=== PATIENT | female | born 1970 | race Hispanic/Latino ===

== ENCOUNTER 2019-12-29 14:47 | Emergency (ER) | payer BC, MEDICAID, OTHER ==
[2019-12-29] MEDS ORDERED: ACETAMINOPHEN 325 MG TAB ONE (15:13)
== END 2019-12-29 16:58 | disposition home or self-care (01) ==
LOC: EDH 14:47
DX: S39.012A Strain of muscle, fascia and tendon of lower back, initial encounter (principal); I10 Essential (primary) hypertension; Z90.49 Acquired absence of other specified parts of digestive tract; Z90.710 Acquired absence of both cervix and uterus; Z98.890 Other specified postprocedural states; V49.49XA Driver injured in collision with other motor vehicles in traffic accident, initial encounter; Y93.89 Activity, other specified; Y92.488 Other paved roadways as the place of occurrence of the external cause; Y99.8 Other external cause status
CPT/HCPCS: 72100

== ENCOUNTER 2021-06-12 23:03 | Emergency (ER) | payer BC ==
[~2021-06-12] VITALS: Ht 152.4 cm; Wt 99.8 kg
[2021-06-12 23:40] LABS: BASOPHILS % (AUTO) 0.4 % (0.0-5.0); EOSINOPHILS % (AUTO) 2.8 % (0.0-8.0); HEMATOCRIT 39.1 % (36-48); LYMPHOCYTES % (AUTO) 34.3 % (21.0-51.0); MEAN CORPUSCULAR HEMOGLOBIN 29.3 pg (27.0-33.0); MEAN CORPUSCULAR HGB CONC 32.5 g/dL (32.0-36.0); MEAN CORPUSCULAR VOLUME 90.3 fL (79-99); MONOCYTES % (AUTO) 7.3 % (3.0-13.0); NEUTROPHILS % (AUTO) 54.7 % (40.0-77.0); PLATELET COUNT (AUTO) 465 K/uL (130-400); RED BLOOD CELL COUNT(AUTO) 4.33 MIL/uL (4.00-5.50); RED CELL DISTRIBUTION WIDTH 12.9 % (11.0-15.5); WHITE BLOOD COUNT (AUTO) 8.5 K/uL (4.8-10.8)
[2021-06-12 23:52] LABS: POTASSIUM 3.6 mmol/L (3.5-5.1)
[2021-06-12 23:56] LABS: ALBUMIN 3.5 g/dL (3.5-5.0); BILIRUBIN,TOTAL 0.3 mg/dL (0.2-1.0); TOTAL PROTEIN, SERUM 8.1 g/dL (6.0-8.3)
[2021-06-13 00:03] LABS: B-TYPE NATRIURETIC PEPTIDE 18 pg/mL (0-100)
[2021-06-13] MEDS ORDERED: KETOROLAC 30MG VIAL (30MG/ML) IV ONE (00:30)
[2021-06-13] MEDS ORDERED: LIDOP TP (00:31)
[2021-06-13] MEDS ORDERED: CYCL-309 PO (00:31)
[2021-06-13] MEDS ORDERED: MELO7.5T12 PO (00:31)
[2021-06-13 00:55] VITALS: BP 146/82
== END 2021-06-13 01:19 | disposition home or self-care (01) ==
LOC: EDH 23:03
DX: R07.89 Other chest pain (principal); M62.830 Muscle spasm of back; R06.02 Shortness of breath; E78.00 Pure hypercholesterolemia, unspecified; I10 Essential (primary) hypertension; Z79.1 Long term (current) use of non-steroidal anti-inflammatories (NSAID)
CPT/HCPCS: 36415; 71045; 80053; 82550; 83690; 83874; 83880; 84484; 85025; 93005; 96372; 99284; J1885

== ENCOUNTER 2021-12-23 15:32 | Emergency (ER) | payer BC ==
[~2021-12-23] VITALS: Ht 152.4 cm; Wt 97.5 kg
[~2021-12-23 15:32] MED LIST: CYCL-309 PO; LIDOP TP; MELO7.5T12 PO
[2021-12-23] MEDS ORDERED: ACETAMINOPHEN 500 MG TABLET ONE (16:03)
[2021-12-23 16:09] LABS: APPEARANCE,URINE Clear (CLEAR); BILIRUBIN,URINE Negative (NEGATIVE); COLOR,URINE Yellow (YELLOW); GLUCOSE, URINE (UA) Negative (NEGATIVE); KETONES,URINE Negative (NEGATIVE); LEUKOCYTE ESTERASE ,URINE Negative (NEGATIVE); NITRATE,URINE Negative (NEGATIVE); OCCULT BLOOD,URINE Negative (NEGATIVE); PROTEIN,URINE Negative (NEGATIVE)
[2021-12-23] MEDS ORDERED: ACETAMINOPHEN 500 MG TABLET PO ONE (16:30)
[2021-12-23] MEDS ORDERED: CEFTRIAXONE 1G VIAL IM ONE (17:30)
[2021-12-23] MEDS ORDERED: AMOX-426 PO (17:34)
[2021-12-23 18:01] VITALS: BP 145/84
== END 2021-12-23 18:02 | disposition home or self-care (01) ==
LOC: EDH 15:32
DX: J02.9 Acute pharyngitis, unspecified (principal); R50.9 Fever, unspecified; Z20.822 Contact with and (suspected) exposure to COVID-19; I10 Essential (primary) hypertension; Z98.890 Other specified postprocedural states; Z79.899 Other long term (current) drug therapy
CPT/HCPCS: 81003; 87635; 87804 ×2; 87880; 96372; 99284; C9803; J0696

== ENCOUNTER 2021-12-25 17:18 | Emergency (ER) | payer BC ==
[~2021-12-25] VITALS: Ht 152.4 cm; Wt 90.7 kg
[~2021-12-25 17:18] MED LIST changes: +AMOX-426 PO
[2021-12-25 17:20] VITALS: BP 155/85
== END 2021-12-25 18:22 | disposition left against medical advice (07) ==
LOC: EDH 17:18
DX: J02.9 Acute pharyngitis, unspecified (principal); R50.9 Fever, unspecified; Z53.21 Procedure and treatment not carried out due to patient leaving prior to being seen by health care provider

== ENCOUNTER 2022-01-11 14:06 | Emergency (ER) | payer BC ==
[~2022-01-11] VITALS: Ht 152.4 cm; Wt 95.3 kg
[2022-01-11 14:07] VITALS: BP 150/85
[2022-01-11] MEDS ORDERED: ACETAMINOPHEN 500 MG TABLET PO ONE (14:30)
[2022-01-11] MEDS ORDERED: 0.9%NACL 1000ML 1,000 ML IV SCH (14:30)
[2022-01-11] MEDS ORDERED: KETOROLAC 30MG VIAL (30MG/ML) IVP ONE (14:30)
[2022-01-11 14:49] LABS: BASOPHILS % (AUTO) 0.3 % (0.0-5.0); EOSINOPHILS % (AUTO) 0.1 % (0.0-8.0); HEMATOCRIT 39.4 % (36-48); LYMPHOCYTES % (AUTO) 7.3 % (21.0-51.0); MEAN CORPUSCULAR HGB CONC 32.5 g/dL (32.0-36.0); MEAN CORPUSCULAR VOLUME 89.1 fL (79-99); MONOCYTES % (AUTO) 5.2 % (3.0-13.0); NEUTROPHILS % (AUTO) 86.3 % (40.0-77.0); PLATELET COUNT (AUTO) 489 K/uL (130-400); RED BLOOD CELL COUNT(AUTO) 4.42 MIL/uL (4.00-5.50); RED CELL DISTRIBUTION WIDTH 13.8 % (11.0-15.5)
[2022-01-11] MEDS ORDERED: ONDA4TAB10 PO (15:18)
[2022-01-11] MEDS ORDERED: LEVO500T90 PO (15:18)
[2022-01-11] MEDS ORDERED: METR375C2 PO (15:18)
[2022-01-11] MEDS ORDERED: DICY20TA2 PO (15:18)
[2022-01-11 15:20] LABS: APPEARANCE,URINE Cloudy (CLEAR); BILIRUBIN,URINE Small (NEGATIVE); COLOR,URINE Dark Yellow (YELLOW); GLUCOSE, URINE (UA) Negative (NEGATIVE); KETONES,URINE Trace mg/dL (NEGATIVE); LEUKOCYTE ESTERASE ,URINE Trace (NEGATIVE); NITRATE,URINE Negative (NEGATIVE); OCCULT BLOOD,URINE Nonhemolyzed Trace (NEGATIVE); PH,URINE 5.5 (5.0-8.0); PROTEIN,URINE POS 2+ mg/dL (NEGATIVE)
[2022-01-11 15:20] LABS: ALBUMIN 3.4 g/dL (3.5-5.0); BILIRUBIN,TOTAL 0.5 mg/dL (0.2-1.0); CREATININE 0.9 mg/dL (0.5-1.5); POTASSIUM 3.3 mmol/L (3.5-5.1); TOTAL PROTEIN, SERUM 8.8 g/dL (6.0-8.3)
[2022-01-11] MEDS ORDERED: METRONIDAZOLE 500 MG TABLET PO SCH (15:30)
[2022-01-11] MEDS ORDERED: LEVOFLOXACIN 500 MG TABLET PO SCH (15:30)
[2022-01-11 15:50] LABS: BACTERIA,URINE Few /HPF (None Seen); RBC,URINE 0-1 /HPF (0-1); SQUAMOUS EPITHELIAL CELL,UR Few /HPF (0-2)
[2022-01-11 15:51] LABS: MUCUS,URINE Rare LPF (None Seen)
== END 2022-01-11 15:39 | disposition home or self-care (01) ==
LOC: EDH 14:06
DX: K52.9 Noninfective gastroenteritis and colitis, unspecified (principal); K57.30 Diverticulosis of large intestine without perforation or abscess without bleeding; E86.0 Dehydration; R50.9 Fever, unspecified; E66.01 Morbid (severe) obesity due to excess calories; Z68.41 Body mass index [BMI] 40.0-44.9, adult; Z20.822 Contact with and (suspected) exposure to COVID-19; I10 Essential (primary) hypertension; Z90.49 Acquired absence of other specified parts of digestive tract; Z98.890 Other specified postprocedural states; Z79.899 Other long term (current) drug therapy; Z87.442 Personal history of urinary calculi
CPT/HCPCS: 36415; 74176; 80053; 81001; 82150; 84484; 85025; 87635; 96374; 99284; C9803; J1885; J7030

== ENCOUNTER 2022-05-10 15:34 | Emergency (ER) | payer BC ==
[~2022-05-10] VITALS: Ht 152.4 cm; Wt 99.8 kg
[~2022-05-10 15:34] MED LIST changes: +DICY20TA2 PO; +LEVO-70 PO; +METR375C2 PO; +ONDA4TAB10 PO
[2022-05-10] MEDS ORDERED: ONDANSETRON 4MG INJ IVP ONE (16:00)
[2022-05-10] MEDS ORDERED: MORPHINE 4 MG SYG IVP ONE (16:30)
[2022-05-10 17:30] LABS: BASOPHILS % (AUTO) 0.3 % (0.0-5.0); EOSINOPHILS % (AUTO) 1.4 % (0.0-8.0); HEMATOCRIT 41.8 % (36-48); LYMPHOCYTES % (AUTO) 22.3 % (21.0-51.0); MEAN CORPUSCULAR HEMOGLOBIN 28.5 pg (27.0-33.0); MEAN CORPUSCULAR HGB CONC 32.1 g/dL (32.0-36.0); MEAN CORPUSCULAR VOLUME 88.7 fL (79-99); MONOCYTES % (AUTO) 6.4 % (3.0-13.0); NEUTROPHILS % (AUTO) 69.3 % (40.0-77.0); PLATELET COUNT (AUTO) 431 K/uL (130-400); RED BLOOD CELL COUNT(AUTO) 4.71 MIL/uL (4.00-5.50); RED CELL DISTRIBUTION WIDTH 13.3 % (11.0-15.5); WHITE BLOOD COUNT (AUTO) 11.8 K/uL (4.8-10.8)
[2022-05-10 17:50] LABS: ALBUMIN 3.7 g/dL (3.5-5.0); CREATININE 0.7 mg/dL (0.5-1.5); POTASSIUM 4.2 mmol/L (3.5-5.1); TOTAL PROTEIN, SERUM 8.7 g/dL (6.0-8.3)
[2022-05-10] MEDS ORDERED: IOHEXOL 350 MG/ML 100ML INFUS..BTL IV ONE (18:17)
[2022-05-10] MEDS ORDERED: IBUP-2077 PO (19:09)
[2022-05-10] MEDS ORDERED: CYCL-309 PO (19:09)
[2022-05-10 19:15] VITALS: BP 133/76
[2022-05-10] MEDS ORDERED: ORPHENADRINE CITRATE 30 MG/ML ML IM ONE (19:30)
[2022-05-10] MEDS ORDERED: IBUPROFEN 800 MG TAB PO ONE (19:30)
== END 2022-05-10 19:46 | disposition home or self-care (01) ==
LOC: EDH 15:34
DX: S39.012A Strain of muscle, fascia and tendon of lower back, initial encounter (principal); S30.1XXA Contusion of abdominal wall, initial encounter; I10 Essential (primary) hypertension; E66.9 Obesity, unspecified; Z68.41 Body mass index [BMI] 40.0-44.9, adult; Z87.442 Personal history of urinary calculi; Z90.49 Acquired absence of other specified parts of digestive tract; Z98.890 Other specified postprocedural states; Z79.899 Other long term (current) drug therapy; W10.8XXA Fall (on) (from) other stairs and steps, initial encounter; Y93.89 Activity, other specified; Y92.89 Other specified places as the place of occurrence of the external cause; Y99.8 Other external cause status
CPT/HCPCS: 74177; 99284; 96374; 96375; 80053; 85025; 36415; 73502; 72100; 96372; J2405; J2270; J2360; Q9967

== ENCOUNTER 2023-07-07 00:22 | Emergency (ER) | payer BC ==
[~2023-07-07] VITALS: Ht 152.4 cm; Wt 104.8 kg
[~2023-07-07 00:22] MED LIST changes: +ACET325T51 PO; +AEC81 PO; +ALLO100T PO; -AMOX-426 PO; -CYCL-309 PO; +DICY-20 PO; -DICY20TA2 PO; +FLUO20CA30 PO; +HYDR500C2 PO; +IBUP-2077 PO; -LIDOP TP; +LOSA25TA41 PO; -MELO7.5T12 PO; +METO-409 PO; +METR-172 PO; -METR375C2 PO; -ONDA4TAB10 PO; +ONDA8TAB12 PO; +SOLI5TAB6 PO; +VITA1CAP PO
[2023-07-07 00:24] VITALS: BP 147/86; PULSE 67; RESP 16
[2023-07-07] MEDS ORDERED: KETOROLAC 30MG VIAL (30MG/ML) IVP ONE (01:00)
[2023-07-07] MEDS ORDERED: TRAMADOL HCL 50 MG TABLET PO PRN (01:00)
[2023-07-07] MEDS ORDERED: IBUP-1493 PO (01:47)
[2023-07-07] MEDS ORDERED: CYCL-309 PO (01:47)
[2023-07-08] MEDS ORDERED: LOSA1TAB37 PO (00:28)
== END 2023-07-07 02:25 | disposition home or self-care (01) ==
LOC: EDH 00:22
DX: M25.512 Pain in left shoulder (principal); I10 Essential (primary) hypertension; M19.90 Unspecified osteoarthritis, unspecified site; Z79.82 Long term (current) use of aspirin
CPT/HCPCS: 99284; 99285; 82550; 83735; 84484; 80053; 83880; 85025; 85378; 36415; 71045 ×2; 73030 ×2; 72050; 72125; 71275; 96374 ×2; 96375; 93005; J3475; J2270; J1885; J1940; Q9967

== ENCOUNTER 2023-07-07 19:29 | Emergency (ER) | payer BC ==
[~2023-07-07] VITALS: Ht 152.4 cm; Wt 99.8 kg
[~2023-07-07 19:29] MED LIST changes: +CYCL-309 PO; +IBUP-1493 PO
[2023-07-07] MEDS ORDERED: GABAPENTIN 300 MG CAPSULE PO SCH (20:00)
[2023-07-07 20:07] LABS: BASOPHILS # (AUTO) 0.04 K/uL (0.00-0.20); BASOPHILS % (AUTO) 0.3 % (0.0-5.0); EOSINOPHILS # (AUTO) 0.29 K/uL (0.00-0.70); EOSINOPHILS % (AUTO) 2.4 % (0.0-8.0); HEMATOCRIT 39.5 % (36-48); IMMATURE GRANULOCYTE ABSOLUTE 0.05 K/uL (0-1); LYMPHOCYTES # (AUTO) 2.3 K/uL (1.0-4.8); LYMPHOCYTES % (AUTO) 19.1 % (21.0-51.0); MEAN CORPUSCULAR HEMOGLOBIN 28.7 pg (27.0-33.0); MEAN CORPUSCULAR HGB CONC 31.6 g/dL (32.0-36.0); MEAN CORPUSCULAR VOLUME 90.6 fL (79-99); MONOCYTES % (AUTO) 7.9 % (3.0-13.0); NEUTROPHILS # (AUTO) 8.4 K/uL (1.8-7.7); NEUTROPHILS % (AUTO) 69.9 % (40.0-77.0); RED BLOOD CELL COUNT(AUTO) 4.36 MIL/uL (4.00-5.50); RED CELL DISTRIBUTION WIDTH 13.3 % (11.0-15.5); WHITE BLOOD COUNT (AUTO) 12.1 K/uL (4.8-10.8)
[2023-07-07 20:17] LABS: CREATININE 0.7 mg/dL (0.5-1.5); PLATELET COUNT (AUTO) 1063 K/uL (130-400); POTASSIUM 3.8 mmol/L (3.5-5.1)
[2023-07-07 20:21] LABS: ALBUMIN 3.4 g/dL (3.5-5.0); BILIRUBIN,TOTAL 0.4 mg/dL (0.2-1.0); MAGNESIUM 1.7 mg/dL (1.80-2.40); TOTAL PROTEIN, SERUM 7.7 g/dL (6.0-8.3)
[2023-07-07 20:40] LABS: B-TYPE NATRIURETIC PEPTIDE 38 pg/mL (0-100)
[2023-07-07] MEDS ORDERED: MAGNESIUM 2GM PREMIX 50ML 50 ML IV SCH (21:00)
[2023-07-07] MEDS ORDERED: IOHEXOL-350 75 ML VIAL IV ONE (21:00)
[2023-07-07] MEDS ORDERED: MORPHINE 2 MG SYG IVP ONE (21:30)
[2023-07-07] MEDS ORDERED: FUROSEMIDE 40MG VIAL IV ONE (23:00)
[2023-07-08 00:23] VITALS: BP 138/68; PULSE 82; RESP 18; O2SAT 96
[2023-07-08] MEDS ORDERED: LOSA1TAB37 PO (00:28)
== END 2023-07-08 00:41 | disposition home or self-care (01) ==
LOC: EDH 19:29
DX: M75.32 Calcific tendinitis of left shoulder (principal); I11.0 Hypertensive heart disease with heart failure; I50.9 Heart failure, unspecified; M19.90 Unspecified osteoarthritis, unspecified site; Z79.1 Long term (current) use of non-steroidal anti-inflammatories (NSAID); Z79.82 Long term (current) use of aspirin
CPT/HCPCS: 99285; 72125; 96374; 71045; 96375; 82550; 83735; 84484; 80053; 83880; 85025; 85378; 36415; 73030; 72050; 71275; 93005; J3475; J2270; J1940; Q9967

== ENCOUNTER 2023-08-29 18:31 | Emergency (ER) | payer BC ==
[~2023-08-29] VITALS: Ht 152.4 cm; Wt 99.8 kg
[~2023-08-29 18:31] MED LIST changes: +LOSA1TAB37 PO
[2023-08-29 20:17] LABS: INR <= 0.93 (0.85-1.15); PROTHROMBIN TIME 9.9 SEC (9.6-11.6)
[2023-08-29 20:18] LABS: PARTIAL THROMBOPLASTIN TIME 31.6 SEC (26.3-35.5)
[2023-08-29 20:23] LABS: CREATININE 0.7 mg/dL (0.5-1.5); POTASSIUM 3.6 mmol/L (3.5-5.1)
[2023-08-29 20:30] LABS: ALBUMIN 3.6 g/dL (3.5-5.0); BILIRUBIN,TOTAL 0.4 mg/dL (0.2-1.0); TOTAL PROTEIN, SERUM 8.3 g/dL (6.0-8.3)
[2023-08-29 20:41] LABS: BASOPHILS # (AUTO) 0.08 K/uL (0.00-0.20); BASOPHILS % (AUTO) 0.7 % (0.0-5.0); EOSINOPHILS # (AUTO) 0.23 K/uL (0.00-0.70); EOSINOPHILS % (AUTO) 2.1 % (0.0-8.0); HEMATOCRIT 41.8 % (36-48); IMMATURE GRANULOCYTE ABSOLUTE 0.07 K/uL (0-1); LYMPHOCYTES # (AUTO) 3.1 K/uL (1.0-4.8); LYMPHOCYTES % (AUTO) 28.7 % (21.0-51.0); MEAN CORPUSCULAR HEMOGLOBIN 29.5 pg (27.0-33.0); MEAN CORPUSCULAR HGB CONC 32.3 g/dL (32.0-36.0); MEAN CORPUSCULAR VOLUME 91.3 fL (79-99); MONOCYTES # (AUTO) 0.9 K/uL (0.1-1.0); MONOCYTES % (AUTO) 8.6 % (3.0-13.0); NEUTROPHILS # (AUTO) 6.4 K/uL (1.8-7.7); NEUTROPHILS % (AUTO) 59.3 % (40.0-77.0); RED BLOOD CELL COUNT(AUTO) 4.58 MIL/uL (4.00-5.50); RED CELL DISTRIBUTION WIDTH 15.9 % (11.0-15.5); WHITE BLOOD COUNT (AUTO) 10.8 K/uL (4.8-10.8)
[2023-08-29 20:53] LABS: B-TYPE NATRIURETIC PEPTIDE 28 pg/mL (0-100)
[2023-08-29 20:59] LABS: PLATELET COUNT (AUTO) 1342 K/uL (130-400)
[2023-08-29] MEDS: METOPROLOL TARTRATE 50 MG TAB PO ONE (21:27)
[2023-08-29 22:00] VITALS: BP 177/71; PULSE 78; RESP 20; O2SAT 98
[2023-08-29] MEDS ORDERED: PRED20TA3 PO (22:13)
[2023-08-30] MEDS ORDERED: LOSA50TA64 PO (21:03)
[2023-08-30] MEDS ORDERED: IBUP-2071 PO (21:06)
[2023-08-30] MEDS ORDERED: HYDR500C2 PO (21:10)
[2023-09-02] MEDS ORDERED: PRED20B PO (11:53)
[2023-09-02] MEDS ORDERED: LOSA-418 PO (11:53)
[2023-09-02] MEDS ORDERED: ATOR40TA69 PO (11:53)
[2023-09-02] MEDS ORDERED: VALA500T PO (11:53)
[2023-09-02] MEDS ORDERED: METO25TA3 PO (11:53)
[2023-09-02] MEDS ORDERED: AMLO5TAB4 PO (11:53)
[2023-09-02] MEDS ORDERED: CEPH500B PO (12:05)
== END 2023-08-29 22:46 | disposition home or self-care (01) ==
LOC: EDH 18:31
DX: G51.0 Bell's palsy (principal); I10 Essential (primary) hypertension; M19.90 Unspecified osteoarthritis, unspecified site; Z79.1 Long term (current) use of non-steroidal anti-inflammatories (NSAID); Z79.82 Long term (current) use of aspirin; Z79.899 Other long term (current) drug therapy; Z90.49 Acquired absence of other specified parts of digestive tract
CPT/HCPCS: 36415; 70450; 71045; 80053; 83880; 84484; 85025; 85610; 85651; 85730; 93005

== ENCOUNTER 2024-05-27 20:20 | Emergency (ER) | payer BC ==
[~2024-05-27] VITALS: Ht 152.4 cm; Wt 95.7 kg
[~2024-05-27 20:20] MED LIST changes: -ACET325T51 PO; -ALLO100T PO; +AMLO5TAB4 PO; +ATOR40TA69 PO; +CEPH500B PO; -CYCL-309 PO; -DICY-20 PO; -IBUP-1493 PO; -IBUP-2077 PO; -LEVO-70 PO; +LOSA-418 PO; -LOSA1TAB37 PO; -LOSA25TA41 PO; -METO-409 PO; +METO25TA3 PO; -METR-172 PO; -ONDA8TAB12 PO; +PRED20B PO; -SOLI5TAB6 PO; +VALA500T PO; -VITA1CAP PO
--- NOTE | 2024-05-27 20:35 | ERN ---
ED Note History of Present Illness Stated Complaint: ABSCESS Chief Complaint: Abscess Time Seen by MD: 20:27 Dictation: This is a 54-year-old female who presented to the emergency room complaining of left shoulder infection and abscess formation. Apparently this has been going on for more than 8 months and she was seen by her primary care physician yesterday and given antibiotics. She has not taken them for more than 24 hours and stated that it is not improving and hence she came into the ER for further evaluation. 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 Allergies: Coded Allergies: No Known Drug Allergies (Verified Allergy, 08/09/13) Home Meds Active Scripts Dicloxacillin Sodium (Dicloxacillin Sodium) 500 Mg Capsule, 1 CAP PO QID for 10 Days, #40 CAP 0 Refills Prov:AMADA MONTES MD 05/27/24 Cephalexin Monohydrate (Keflex) 500 Mg Cap, 500 MG PO BID, #20 CAP 0 Refills Prov:HOWARD PRESLEY MD 09/02/23 Valacyclovir HCl (Valtrex) 500 Mg Tablet, 1000 MG PO TID, #21 TAB 0 Refills Prov:HOWARD PRESLEY MD 09/02/23 Prednisone (Deltasone/Orasone [Bulk]) 20 Mg Tab, 60 MG PO DAILY, #15 TAB 0 Refills Prov:HOWARD PRESLEY MD 09/02/23 Metoprolol Succinate (Toprol Xl) 25 Mg Tab.er.24h, 25 MG PO DAILY, #30 TAB 0 Refills Prov:HOWARD PRESLEY MD 09/02/23 Losartan Potassium (Cozaar) 50 Mg Tablet, 50 MG PO BID, #60 TAB 0 Refills Prov:HOWARD PRESLEY MD 09/02/23 Atorvastatin Calcium (LIPITOR) 40 Mg Tablet, 40 MG PO HS, #30 TAB 0 Refills Prov:HOWARD PRESLEY MD 09/02/23 Amlodipine Besylate (Norvasc 5Mg Tab) 5 Mg Tablet, 10 MG PO DAILY, #30 TAB 0 Refills Prov:HOWARD PRESLEY MD 09/02/23 Reported Medications Hydroxyurea (Hydroxyurea) 500 Mg Capsule, 1000 MG PO DAILYDINNER, CAP 08/30/23 Aspirin (ASPIRIN 81 MG ECTAB) 81 Mg Ectab, 81 MG PO DAILY, TAB.EC 08/23/22 Fluoxetine HCl (Prozac) 20 Mg Cap, 20 MG PO AM, CAP 08/23/22 Past Medical History Past Medical History: Hypertension Additional Past Medical Hx: HX OF OSTEOARTHRITIS Surgical History: Appendectomy Family History: Negative Social History: Negative History: Not Applicable RN Note Reviewed/Agreed w/PFSH: Yes Review of System Dictation Constitutional: Negative for fever,chills, and weight loss Eyes: Negative for injury, pain,redness, and discharge ENT: Negative for injury,pain or swelling Cardiovascular: Negative for chest pain, palpitations, and edema Respiratory: Negative for shortness of breath, cough, and wheezing, Abdomen/GI: Negative for abdominal pain, nausea, vomiting, diarrhea, and constipation Back: Negative for injury and pain : Negative for injury, bleeding and discharge MS/Extremity: Negative for injury and deformity Skin: Negative for rash, and discoloration Neuro: Negative for headache, weakness, numbness, tingling, and seizure Psych: Negative for suicide ideation, homicidal ideation, and hallucinations Initial Vital Sign VS Vital Signs Date Time Temp Pulse Resp B/P (MAP) Pulse Ox O2 Delivery O2 Flow Rate FiO2 05/27/24 20:21 98.8 77 16 152/96 97 Room Air Physical Exam Dictation General: awake, alert, NAD Head/Face: Normocephalic, atraumatic Eyes: PERRL, EOMI, vision at baseline ENT: oral cavity clear, TMs clear, no signs of infection Neck: Trachea midline, supple, no nuchal rigidity Cardiovascular: RRR, normal S1/S2, No MRGs, no JVD Respiratory: CTAB, no respiratory distress, No rales or wheezes Abdomen: Soft, non-tender, non-distended, normal bowel sounds, no guarding or rebound. Skin: Warm, dry, normal turgor, no rash MS/Extremity: Pulses equal, no cyanosis, neurovascular intact, FROM Neuro: COAx4, GCS 15, strength 5/5, CN 2-12 intact, normal cerebellar exam, normal gait, Psych: Normal behavior, mood, and affect normal Extremities-trace edema without any palpable cords, Homans sign is negative Results (Laboratory/Radiology) Laboratory/Radiology Laboratory Tests Test 05/27/24 21:53 White Blood Count 10.1 K/uL (4.8-10.8) Red Blood Count 3.68 MIL/uL (4.00-5.50) L Hemoglobin 12.2 g/dL (12.0-16.0) Hematocrit 37.3 % (36-48) Mean Corpuscular Volume 101.4 fL (79-99) H Mean Corpuscular Hemoglobin 33.2 pg (27.0-33.0) H Mean Corpuscular Hemoglobin Concent 32.7 g/dL (32.0-36.0) Red Cell Distribution Width 16.7 % (11.0-15.5) H Platelet Count 1101 K/uL (130-400) *H Mean Platelet Volume 9.5 fL (7.5-10.5) Immature Granulocyte % (Auto) 0.4 % (0-1) Neutrophils (%) (Auto) 66.1 % (40.0-77.0) Lymphocytes (%) (Auto) 22.5 % (21.0-51.0) Monocytes (%) (Auto) 8.4 % (3.0-13.0) Eosinophils (%) (Auto) 2.1 % (0.0-8.0) Basophils (%) (Auto) 0.5 % (0.0-5.0) Neutrophils # (Auto) 6.7 K/uL (1.8-7.7) Lymphocytes # (Auto) 2.3 K/uL (1.0-4.8) Monocytes # (Auto) 0.9 K/uL (0.1-1.0) Eosinophils # (Auto) 0.21 K/uL (0.00-0.70) Basophils # (Auto) 0.05 K/uL (0.00-0.20) Absolute Immature Granulocyte (auto 0.04 K/uL (0-1) Nucleated Red Blood Cells 0.0 % (0.0-0.19) Sodium Level 142 mmol/L (136-145) Potassium Level 3.9 mmol/L (3.5-5.1) Chloride Level 102 mmol/L (101-111) Carbon Dioxide Level 33 mmol/L (21-32) H Blood Urea Nitrogen 15 mg/dL (7-18) Creatinine 0.6 mg/dL (0.5-1.0) Glomerular Filtration Rate Calc 105 mL/min (>90) Random Glucose 96 mg/dL (70-105) Total Calcium 9.2 mg/dL (8.5-10.1) Labs Reviewed?: Yes ED Course ED Course Orders Procedure Category Date Status Time Cbc With Differential LAB 05/27/24 In Process 20:35 Basic Metabolic Panel LAB 05/27/24 Complete 20:35 Ketorolac PHA 05/27/24 Complete Tromethamine 15mg/Ml 22:00 Amox/Clav 875/125mg PHA 05/27/24 Complete Tab (Augmentin 875-1 22:00 Current Medications Medications (Trade) Dose Ordered Sig/Cameron Route PRN Reason Start Time Stop Time Status Last Admin Dose Admin Amoxicillin/ Clavulanate Potassium (Augmentin 875-125 Tablet) 1 each ONCE ONCE PO 05/27/24 22:00 05/27/24 22:01 DC 05/27/24 21:46 Ketorolac Tromethamine (toRADol) 15 mg ONCE ONCE IV 05/27/24 22:00 05/27/24 22:01 DC 05/27/24 21:46 Vital Signs Date Time Temp Pulse Resp B/P (MAP) Pulse Ox O2 Delivery O2 Flow Rate FiO2 05/27/24 20:21 98.8 77 16 152/96 97 Room Air We will perform diagnostic labs, advanced imaging and administer medications according to the patient's complaint. Once the results are available, will review and personally interpreted the labs to rule out any acute life- threatening emergency the trach require immediate intervention and treatment. I will then re-evaluate the patient after treatment and diagnostic exams have return to determine whether the patient requires any further testing, can safely be discharged home or need further admission to hospital for additional treatment and evaluation. Medical Decision Making MDM MDM: Differential diagnosis: Cellulitis, furuncle, erysipelas, abscess Rationale: Tests considered and ordered secondary to shared decision making include: Previous outside records reviewed: Old ER visits. Risk of complication and/or morbidity or mortality of patient management: None Medications-Per medication reconciliation Need for hospitalization: Patient does not meet criteria for hospitalization. Need for emergency major/minor surgery: No There are no social concerns with this patient. Prescription drug management Prescriptions will include symptomatic care Patient's prior external medical records from other ER visits were reviewed by me as indicated. Prior testing and results from previous visits were reviewed. Prior tests were taken into account with medical decision making and resource utilization, independent historian/historians were used to obtain complete medical history. I independently interpreted the test that were performed, results were reviewed by me and considered findings on radiology if ordered. Medical management and examination interpretation discussions were had by me with other qualified healthcare professionals as indicated for the patient's care. Procedure Site: Left shoulder skin Blade Size: 11 I & D Procedure: no betadine prepno sterile drapes applied Progress Left shoulder skin abscess incision and drainage After obtaining an informed consent, appropriate time-out and pause; the left abscess area was anesthetized with 1% lidocaine solution after a thorough prep and cleansing. Sterile draping was placed and using a blade 11. There was a small area of the abscess with a blip which was yellowish in color and incision was made at this site and small amount of pus was extruded. The remaining area remained indurated without any further pus Patient had pain during the procedure despite the local anesthesia. Patient tolerated the procedure overall very well with stable hemodynamics Sterile dressing was applied. Antibiotics parenteral we will be given. DX & DISP Disposition: Discharge Departure Impression: Primary Impression: Shoulder pain, left Additional Impressions: Cellulitis of left shoulder, Abscess of skin of left shoulder Condition: Stable Scripts Dicloxacillin Sodium (Dicloxacillin Sodium) 500 Mg Capsule 1 CAP PO QID for 10 Days, #40 CAP 0 Refills Prov: AMADA MONTES MD 05/27/24 Additional Instructions: Patient and the caregiver have been informed of all the diagnostic tests and the imaging conducted during the today's visit to the emergency room and has verbalized understanding of the results I have personally reviewed and interpreted all diagnostic exams performed here in the ER today as well as the vital signs documented by the nursing staff. The patient is now being discharged to home and should follow up with the primary care physician or the specialist as directed by the ER staff. Follow-up with primary care provider in 1 to 2 days. Take medications as directed here in the emergency room. Okay to continue home medications unless otherwise discussed during your visit in the emergency room today. Return to your nearest emergency room if symptoms worsen or if there is no improvement. Call 911 if you need immediate assistance. Take Tylenol or Motrin over-the- counter as needed and if no contraindications are present. Increase oral hydration. A wound culture or urine culture was ordered here in the emergency room department please follow-up with primary care provider and advise them to get repeat ports from our facility. If you had any Don wrap/splints that were applied here, please do not remove them until you see your primary care or specialty. Referrals: DIPTI DORANTES DO (PCP) AMADA MONTES MD May 27, 2024 20:35
[2024-05-27] MEDS ORDERED: DICL500C PO (21:42)
[2024-05-27] MEDS: AMOX/CLAV 875/125MG TAB PO ONE (21:46)
[2024-05-27] MEDS: ketOROlac 15MG/ML VIAL (15MG/ML) IV ONE (21:46)
[2024-05-27 22:03] LABS: BASOPHILS # (AUTO) 0.05 K/uL (0.00-0.20); BASOPHILS % (AUTO) 0.5 % (0.0-5.0); EOSINOPHILS # (AUTO) 0.21 K/uL (0.00-0.70); EOSINOPHILS % (AUTO) 2.1 % (0.0-8.0); HEMATOCRIT 37.3 % (36-48); IMMATURE GRANULOCYTE ABSOLUTE 0.04 K/uL (0-1); LYMPHOCYTES # (AUTO) 2.3 K/uL (1.0-4.8); LYMPHOCYTES % (AUTO) 22.5 % (21.0-51.0); MEAN CORPUSCULAR HEMOGLOBIN 33.2 pg (27.0-33.0); MEAN CORPUSCULAR HGB CONC 32.7 g/dL (32.0-36.0); MEAN CORPUSCULAR VOLUME 101.4 fL (79-99); MONOCYTES # (AUTO) 0.9 K/uL (0.1-1.0); MONOCYTES % (AUTO) 8.4 % (3.0-13.0); NEUTROPHILS # (AUTO) 6.7 K/uL (1.8-7.7); NEUTROPHILS % (AUTO) 66.1 % (40.0-77.0); RED BLOOD CELL COUNT(AUTO) 3.68 MIL/uL (4.00-5.50); RED CELL DISTRIBUTION WIDTH 16.7 % (11.0-15.5); WHITE BLOOD COUNT (AUTO) 10.1 K/uL (4.8-10.8)
[2024-05-27 22:06] LABS: PLATELET COUNT (AUTO) 1101 K/uL (130-400)
[2024-05-27 22:12] LABS: CREATININE 0.6 mg/dL (0.5-1.0); POTASSIUM 3.9 mmol/L (3.5-5.1)
[2024-05-27 22:33] VITALS: BP 144/89; PULSE 75; RESP 19; TEMP 98.6; O2SAT 99
== END 2024-05-27 22:36 | disposition home or self-care (01) ==
LOC: EDH 20:20
DX: L02.414 Cutaneous abscess of left upper limb (principal); L03.114 Cellulitis of left upper limb; I10 Essential (primary) hypertension; M19.90 Unspecified osteoarthritis, unspecified site; Z79.52 Long term (current) use of systemic steroids; Z79.624 Long term (current) use of inhibitors of nucleotide synthesis; Z79.82 Long term (current) use of aspirin; Z79.899 Other long term (current) drug therapy; Z90.49 Acquired absence of other specified parts of digestive tract
CPT/HCPCS: 99284; 96374; 10060; 80048; 85025; 36415; J1885